=== PATIENT | female | born 1975 | race Caucasian/White ===

== ENCOUNTER → 2016-09-21 | Outpatient (CLI) | payer MEDICAID ==
[2016-09-21 16:02] VITALS: BP 127/69
== END ==
LOC: MHUC 15:46
PROVIDERS: ATTEND Physician Assistant
DX: K08.89 Other specified disorders of teeth and supporting structures (principal)
CPT/HCPCS: 99213

== ENCOUNTER 2016-09-26 12:32 | Emergency (ER) | payer MEDICAID ==
[~2016-09-26] VITALS: Ht 152.4 cm; Wt 80.2 kg
[~2016-09-26 12:32] MED LIST: AMOX1TAB12 PO; BENZ-22 PO; METH4TAB27 PO
[2016-09-26 12:44] VITALS: BP 147/53
[2016-09-26] MEDS ORDERED: CLIN-78 PO (13:21)
[2016-09-26] MEDS ORDERED: CITA20TA12 PO (14:02)
[2016-09-26] MEDS ORDERED: LTH300C PO (14:02)
[2016-09-26] MEDS ORDERED: PANT40TA3 PO (14:02)
--- NOTE | 2016-09-26 14:02 | NUR ---
this pt in our er at 1235, she states has ongoing gum pain, has been to urgent care several times, no dentist will take her welfare card, already has amoxicillan and ultram for her pain, but would like something else for the pain since ultram does not work. our er was full, told pt after triage that she needed to wait in the lobby and it would be 45 min to an hour to get a room. she said she did not want to wait that long and signed out ama. she also states she would go back to urgent care and get a different antibiotic because she did not think the amox was working.
== END 2016-09-26 12:53 | disposition left against medical advice (07) ==
LOC: EDUNIT# 12:32 → ED 12:35 → AMS 12:53
DX: K13.79 Other lesions of oral mucosa (principal); Z53.21 Procedure and treatment not carried out due to patient leaving prior to being seen by health care provider
CPT/HCPCS: 99282

== ENCOUNTER → 2016-09-26 | Outpatient (CLI) | payer MEDICAID ==
[2016-09-26 13:25] VITALS: BP 117/67
== END ==
LOC: MHUC 13:00
PROVIDERS: ATTEND Physician Assistant
DX: K08.89 Other specified disorders of teeth and supporting structures (principal)
CPT/HCPCS: 99213